=== PATIENT | female | born 1995 | race Caucasian/White ===

== ENCOUNTER 2019-08-28 20:32 | Inpatient (IN) | payer OTHER ==
[~2019-08-28] VITALS: Ht 167.6 cm; Wt 59.7 kg
[2019-08-28] MEDS ORDERED: MELA2.5C2 PO (20:41)
[2019-08-28] MEDS ORDERED: BIOT1000 PO (20:41)
[2019-08-28 21:27] LABS: BASO # 0.1 10^3/uL (0.0-0.2); BASO % 0.7 % (0.0-1.0); EOS % 0.4 % (0.0-3.0); HEMATOCRIT 41.2 % (36.0-47.0); LYMPH # 1.9 10^3/uL (1.5-5.0); LYMPH % 28.1 % (24.0-44.0); MEAN CORPUSCULAR HEMOGLOBIN 31.7 pg (27.0-33.0); MEAN CORPUSCULAR HGB CONC 31.6 g/dl (32.0-36.5); MEAN CORPUSCULAR VOLUME 100.5 fl (80.0-96.0); MONO # 0.3 10^3/uL (0.0-0.8); MONO % 4.9 % (0.0-5.0); NEUTROPHILS # 4.5 10^3/uL (1.5-8.5); NEUTROPHILS % 65.8 % (36.0-66.0); PLATELET COUNT, AUTOMATED 227 10^3/uL (150-450); WHITE BLOOD COUNT 6.9 10^3/uL (4.0-10.0)
[2019-08-28 21:46] LABS: HCG, SERUM QUALITATIVE NEGATIVE (NEGATIVE)
[2019-08-28 21:48] LABS: AMPHETAMINES LEVEL URINE NEGATIVE (NEGATIVE); BARBITURATES URINE NEGATIVE (NEGATIVE); BENZODIAZEPINES URINE NEGATIVE (NEGATIVE); CANNABINOIDS URINE NEGATIVE (NEGATIVE); COCAINE METABOLITE URINE NEGATIVE (NEGATIVE); METHADONE URINE NEGATIVE (NEGATIVE); OPIATES URINE NEGATIVE (NEGATIVE); PHENCYCLIDINE URINE NEGATIVE (NEGATIVE)
[2019-08-28 22:00] LABS: ACETAMINOPHEN LEVEL < 2.0 UG/ML (10.0-30.0); ALBUMIN 4.7 GM/DL (3.2-5.2); ALT/SGPT 19 U/L (12-78); BILIRUBIN,DIRECT < 0.1 MG/DL (0.0-0.2); BILIRUBIN,TOTAL 0.3 MG/DL (0.2-1.0); BLOOD UREA NITROGEN 8 MG/DL (7-18); CALCIUM LEVEL 8.5 MG/DL (8.5-10.1); CARBON DIOXIDE LEVEL 26 MEQ/L (21-32); CHLORIDE LEVEL 112 MEQ/L (98-107); CPK CREATINE PHOSPHOKINASE 379 U/L (26-192); CREATININE FOR GFR 0.91 MG/DL (0.55-1.30); ETHYL ALCOHOL (ETHANOL) 0.329 % (0.000-0.010); GLOMERULAR FILTRATION RATE > 60.0 (>60); GLUCOSE, FASTING 79 MG/DL (70-100); POTASSIUM SERUM 3.9 MEQ/L (3.5-5.1); SALICYLATE LEVEL < 1.7 MG/DL (5.0-30.0); SODIUM LEVEL 146 MEQ/L (136-145); THYROID STIMULATING HORMONE 0.647 uIU/ML (0.358-3.740); TOTAL PROTEIN 8.2 GM/DL (6.4-8.2)
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
[2019-08-28] MEDS ORDERED: IBUPROFEN 600 MG TAB PO ONE (23:45)
--- NOTE | 2019-08-29 06:34 | ECGEPIP ---
[facility] - ED Test Date: 2019-08-28 Pat Name: WANDA KOENIG Department: Room: - Gender: Female [employer] Department Chair: ANGELES : 1995 Requested By: FRANCOISE ROMEO Order Number: [id number] Reading MD: Andres Henderson Measurements Intervals [place] Rate: 75 P: 74 AK: 192 QRS: 76 QRSD: 82 T: 54 QT: 388 QTc: 435 Interpretive Statements SINUS RHYTHM W FIRST DEGREE AV BLOCK DELAYED R WAVE PROGRESSION NONSPECIFIC ST T WAVE CHANGES NO PRIOR ECG FOR COMPARISON Electronically Signed on 08-29-2019 6:33:39 EST by Andres Henderson
[2019-08-29] MEDS ORDERED: MELA5TAB9 PO (12:55)
[2019-08-30] MEDS ORDERED: OLANZapine ORAL DISINTEGRATING TAB 5MG PO PRN (11:45)
[2019-08-30] MEDS ORDERED: traZODone 50 MG TAB PO PRN (11:45)
[2019-08-30] MEDS ORDERED: LORazepam 2 MG TAB PO PRN (11:45)
[2019-08-30] MEDS ORDERED: IBUPROFEN 400 MG TAB PO PRN (11:45)
[2019-08-30] MEDS ORDERED: ACETAMINOPHEN TAB 650MG DOSE (2X325MG) PO PRN (11:45)
[2019-08-30] MEDS: FOLIC ACID 1 MG TAB PO SCH (15:35)
[2019-08-30] MEDS: MULTIVITAMINS/MINERALS THERAP 1 TAB PO SCH (15:35)
[2019-08-30] MEDS: THIAMINE 100 MG TAB PO SCH ×2 (15:35→20:19)
[2019-08-30 15:38] VITALS: BP 113/75
[2019-08-30] MEDS ORDERED: NICOTINE POLACRILEX 2 MG GUM PO ONE (21:00)
[2019-08-30] MEDS: BACITRACIN OINT 30GM TOP SCH (21:44)
[2019-08-31 06:18] VITALS: BP 99/62
[2019-08-31] MEDS: NICOTINE 21MG/24HR 1 EA TRANSDERMAL TD SCH (09:06)
[2019-08-31] MEDS: MULTIVITAMINS/MINERALS THERAP 1 TAB PO SCH (09:06)
[2019-08-31] MEDS: FOLIC ACID 1 MG TAB PO SCH (09:06)
[2019-08-31] MEDS: BACITRACIN OINT 30GM TOP SCH ×3 (09:06→20:17)
[2019-08-31] MEDS: THIAMINE 100 MG TAB PO SCH ×2 (09:06→20:17)
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
[2019-08-31] MEDS ORDERED: SERTRALINE HCL 25 MG TABLET PO ONE (12:00)
[2019-08-31 17:47] VITALS: BP 101/64
--- NOTE | 2019-09-01 00:17 | MHCR ---
DATE OF CONSULTATION: 08/31/2019 TIME: 5:00 p.m. REASON: Medical evaluation of inpatient psychiatric admission. 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 She is originally from [place]. She has been hospitalized secondary to suicidal ideation. I was asked to see her for medical evaluation. The patient on admission was acutely intoxicated. At the present moment, the patient is alert and oriented times three. She denies having any acute medical issues. HOME MEDICATIONS: None. PAST MEDICAL HISTORY: None. PAST SURGICAL HISTORY: Positive for tonsillectomy. 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 She does not use any tobacco. She does use and drink alcohol. FAMILY HISTORY: Notable for her father who has neck cancer, mom with thyroid issues. REVIEW OF SYSTEMS: 12-systems reviewed; the patient is otherwise negative except what is noted in the history of the present illness. EXAMINATION: On examination, the patient's temperature is 98.8, pulse 68 and regular, respiratory rate 16, blood pressure 101/64, oxygen saturation 95% on room air. GENERAL: The patient is alert and oriented times three, appears in no acute distress. SKIN: Intact and warm to touch. HEAD: Atraumatic, normocephalic. Pupils are equal, round and reactive to light and accommodation. Extraocular movements are full in all directions. No scleral icterus or conjunctival pallor. Oropharynx is clear without erythema or thrush. NECK: Supple. LUNGS: Lung sounds present bilaterally without rales or rhonchi. HEART: S1, S2. No murmurs, rubs, or gallops. ABDOMEN: Soft, nontender, nondistended. Positive bowel sounds. EXTREMITIES: Without any cyanosis, clubbing or edema. LABS ARE FOLLOWS: White count 6.9, hemoglobin 13, hematocrit 41.2, platelet count is 227. Sodium 146, potassium 3.9, chloride 112, carbon dioxide 26, anion gap is 8, BUN is 8, creatinine is 0.9, calcium 8.5, TSH is 0.647. Urine hCG was negative. Urine drug screen was negative. Alcohol level was 0.329. Acetaminophen level was less than 2, salicylates less than 1.7, glucose is 160. IMPRESSION: 1. Acute alcohol intoxication. 2. Suicidal ideation with depression. 3. Hypoglycemia secondary to poor oral intake. RECOMMENDATIONS: From my standpoint, the patient is medically stable. May proceed with ongoing psychiatric illness treatment. associated medical issues other than chronic alcoholism, which the patient states that she will followup as an outpatient for further treatment. Thank you for allowing us to participate in the care of your patient. At the present time, will sign off; the patient is medically stable.
[2019-09-01 06:16] VITALS: BP 121/66
[2019-09-01] MEDS: MULTIVITAMINS/MINERALS THERAP 1 TAB PO SCH (08:37)
[2019-09-01] MEDS: FOLIC ACID 1 MG TAB PO SCH (08:37)
[2019-09-01] MEDS: THIAMINE 100 MG TAB PO SCH (08:37)
[2019-09-01] MEDS: BACITRACIN OINT 30GM TOP SCH (08:37)
[2019-09-01] MEDS ORDERED: SERTRALINE HCL 25 MG TABLET PO SCH (09:00)
[2019-09-01] MEDS: NICOTINE 21MG/24HR 1 EA TRANSDERMAL TD SCH (09:00)
[2019-09-01] MEDS ORDERED: NICO21PAT TD (10:55)
[2019-09-01] MEDS ORDERED: SERT25TA21 PO (10:55)
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
== END 2019-09-01 12:00 | disposition home or self-care (01) | DRG 880 ==
LOC: M ED 20:32 → M ED INP 08-30 11:45 → M PSY 08-30 14:05
PROVIDERS: ADMIT Psychiatry & Neurology Addiction Medicine; ATTEND Psychiatry & Neurology Addiction Medicine
DX: F43.0 Acute stress reaction (principal); R45.851 Suicidal ideations; F10.229 Alcohol dependence with intoxication, unspecified; Z91.410 Personal history of adult physical and sexual abuse; Z81.8 Family history of other mental and behavioral disorders; Z79.899 Other long term (current) drug therapy; F32.9 Major depressive disorder, single episode, unspecified; E16.2 Hypoglycemia, unspecified

== ENCOUNTER 2019-12-17 17:07 | Inpatient (IN) | payer OTHER ==
[~2019-12-17] VITALS: Ht 170.2 cm; Wt 61.6 kg
[~2019-12-17 17:07] MED LIST: BIOT1000 PO; MELA2.5C2 PO; MELA5TAB9 PO; NICO21PAT TD; SERT25TA21 PO
[2019-12-17 18:02] LABS: HEMATOCRIT 44.1 % (36.0-47.0); HEMOGLOBIN 14.9 g/dl (12.0-15.5); MEAN CORPUSCULAR HGB CONC 33.8 g/dl (32.0-36.5); MEAN CORPUSCULAR VOLUME 94.8 fl (80.0-96.0); PLATELET COUNT, AUTOMATED 293 10^3/uL (150-450); RED BLOOD COUNT 4.65 10^6/uL (4.00-5.40); WHITE BLOOD COUNT 5.4 10^3/uL (4.0-10.0)
[2019-12-17 18:20] LABS: AMPHETAMINES LEVEL URINE NEGATIVE (NEGATIVE); BARBITURATES URINE NEGATIVE (NEGATIVE); BENZODIAZEPINES URINE NEGATIVE (NEGATIVE); CANNABINOIDS URINE NEGATIVE (NEGATIVE); COCAINE METABOLITE URINE NEGATIVE (NEGATIVE); METHADONE URINE NEGATIVE (NEGATIVE); OPIATES URINE NEGATIVE (NEGATIVE); PHENCYCLIDINE URINE NEGATIVE (NEGATIVE)
[2019-12-17 18:42] LABS: ACETAMINOPHEN LEVEL < 2.0 UG/ML (10.0-30.0); ALT/SGPT 19 U/L (12-78); BILIRUBIN,DIRECT 0.1 MG/DL (0.0-0.2); BILIRUBIN,TOTAL 0.3 MG/DL (0.2-1.0); BLOOD UREA NITROGEN 3 MG/DL (7-18); CALCIUM LEVEL 8.9 MG/DL (8.5-10.1); CARBON DIOXIDE LEVEL 28 MEQ/L (21-32); CHLORIDE LEVEL 108 MEQ/L (98-107); CREATININE FOR GFR 0.88 MG/DL (0.55-1.30); ETHYL ALCOHOL (ETHANOL) 0.246 % (0.000-0.010); GLOMERULAR FILTRATION RATE > 60.0 (>60); GLUCOSE, FASTING 107 MG/DL (70-100); POTASSIUM SERUM 4.3 MEQ/L (3.5-5.1); SALICYLATE LEVEL < 1.7 MG/DL (5.0-30.0); SODIUM LEVEL 143 MEQ/L (136-145); TOTAL PROTEIN 8.8 GM/DL (6.4-8.2)
[2019-12-17] MEDS ORDERED: LORazepam 2 MG TAB PO PRN (19:00)
[2019-12-18] MEDS ORDERED: ACETAMINOPHEN TAB 650MG DOSE (2X325MG) PO PRN (02:30)
[2019-12-18] MEDS ORDERED: MAALOX 30 ML SUSP *UDC PO PRN (02:30)
[2019-12-18] MEDS ORDERED: MOM 30ML SUSPENSION UDC PO PRN (02:30)
[2019-12-18] MEDS ORDERED: MELA1TAB9 PO (03:20)
[2019-12-18] MEDS ORDERED: SERT50TA29 PO (03:20)
[2019-12-18 05:22] VITALS: BP 127/76
[2019-12-18 05:25] VITALS: BP 127/76
[2019-12-18] MEDS ORDERED: SERTRALINE HCL 25 MG TABLET PO SCH (09:00)
--- NOTE | 2019-12-18 11:52 | HPEPDOC ---
General Date of Admission December 18, 2019 at 02:28 Date of Service: December 18, 2019 Chief Complaint The patient is a 24-year-old female admitted with a reason for visit of Unspecified Depressive Disorder. Source: Patient Exam Limitations: No limitations Timing/Duration: Other (not applicable) Severity: Other (. 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 Patient was also found to have alcohol level of 0.246 in ED and admitted to inpatient mental health unit for further care. Patient has no past medical history, offers no medical complaints at the present time. Home Medications Scheduled Melatonin (Melatonin) 5 Mg Tablet, 5 MG PO QHS, (Reported) Sertraline HCl (Sertraline HCl) 50 Mg Tablet, 50 MG PO DAILY, (Reported) Allergies Coded Allergies: No Known Drug Allergies (Verified Allergy, Unknown, 08/28/19) Past Medical History Medical History None Surgical History Tonsillectomy Family History Father is diagnosed with throat cancer at age of early 40s Social History * Smoker: other (. Patient vaps about a pack a day) Alcohol: rarely Drugs: denies A-FIB/CHADSVASC A-FIB History Current/History of A-Fib/PAF?: No Review of Systems Constitutional: Denies: Chills, Fever, Malaise, Night Sweats, Weakness, Fatigue, Weight Loss, Lethargy, Other Eyes: Denies: Pain, Vision change, Conjunctivae inflammation, Eyelid inflammation, Redness, Other ENT: Denies: Head Aches, Ear Pain, Dysphagia, Sinus Congestion, Post Nasal Drip, Sore Throat, Epistaxis, Other Symptoms Skin: Denies: Rash, Lesions, Jaundice, Bruising, Itching, Dry, Breakdown, Nail Changes, Other Pulmonary: Denies: Dyspnea, Cough, Pleuritic Chest Pain, Other Symptoms Cardiovascular: Denies: Chest Pain, Palpitations, Orthopnea, Paroxysmal Noc. Dyspnea, Edema, Lt Headedness, Other Symptoms Gastrointestinal: Denies: Nausea, Vomiting, Abdominal Pain, Diarrhea, Con stipation, Melena, Hematochezia, Other Symptoms Genitourinary: Denies: Dysuria, Frequency, Incontinence, Hematuria, Retention, Other Symptoms Musculoskeletal: Denies: Neck Pain, Back Pain, Shoulder Pain, Arm Pain, Hand Pain, Leg Pain, Foot Pain, Joint Pain, Muscle Pain, Spasms, Other Symptoms Neurological: Denies: Weakness, Numbness, Incoordination, Change in speech, Confusion, Seizures, Other Symptoms Psych: Denies: Mood Normal, Anxiety, Depression, Memory Issues, Thoughts of Self Harm, Anger, Thoughts of Harming Other, Other Psych Physical Examination General Exam: Positive: Alert, Cooperative Eye Exam: Positive: PERRLA, Conjunctiva & lids normal ENT Exam: Positive: Atraumatic, Mucous membr. moist/pink Neck Exam: Positive: Supple Chest Exam: Positive: Clear to auscultation, Normal air movement Heart Exam: Positive: Rate Normal, Normal S1, Normal S2 Abdomen Exam: Positive: Normal bowel sounds, Soft Extremity Exam: Positive: Normal pulses Skin Exam: Positive: Nl turgor and temperature Neuro Exam: Positive: Strength at 5/5 X4 ext, Sensation Intact, Cranial Nerves 3-12 NL Psych Exam: Positive: Mood NL, Oriented x 3 Vital Signs Vital Signs Date Time Temp Pulse Resp B/P (MAP) Pulse Ox O2 Delivery O2 Flow Rate FiO2 12/18/19 05:25 86 127/76 12/18/19 05:22 99.3 16 99 Room Air Laboratory Data Labs 24H Laboratory Tests 2 12/17/19 17:39: Nucleated Red Blood Cells % (auto) 0.0, Anion Gap 7L, Glomerular Filtration Rate > 60.0, Calcium Level 8.9, Total Bilirubin 0.3, Direct Bilirubin 0.1, Aspartate Amino Transf (AST/SGOT) 14, Alanine Aminotransferase (ALT/SGPT) 19, Alkaline Phosphatase 117, Total Protein 8.8H, Albumin 5.0, Albumin/Globulin Ratio 1.3, Thyroid Stimulating Hormone (TSH) 1.030, Salicylates Level < 1.7L, Urine Opiates Screen NEGATIVE, Urine Methadone Screen NEGATIVE, Acetaminophen Level < 2.0L, Urine Barbiturates Screen NEGATIVE, Urine Phencyclidine Screen NEGATIVE, Urine Amphetamines Screen NEGATIVE, Urine Benzodiazepines Screen NEGATIVE, Urine Cocaine Metabolite Screen NEGATIVE, Urine Cannabinoids Screen NEGATIVE, Ethyl Alcohol Level 0.246H 12/17/19 22:26: Ethyl Alcohol Level 0.147H CBC/BMP Laboratory Tests 12/17/19 17:39 Problems (1) Suicidal ideation Status: Acute Problem Text: Patient admitted to inpatient mental health unit for further assessment and care Individual and group counseling, as per psychiatry Pharmacological intervention as per psychiatry Patient has no past medical history and doesn't offer any medical complaints at the present time Please call as needed (2) Depression Status: Acute Problem Text: Medications as per psychiatry (3) Alcohol intoxication Status: Acute Problem Text: Patient has been started on benzodiazepine for his prevention of withdrawal symptoms Also is on trazodone at bedtime for sleep Oral hydration. Recommended Plan / VTE VTE Prophylaxis Ordered?: Yes LUCIANO FELTON MD December 18, 2019 11:52
[2019-12-18] MEDS: NICOTINE 21MG/24HR 1 EA TRANSDERMAL TD SCH (12:00)
[2019-12-18] MEDS ORDERED: SERTRALINE HCL 25 MG TABLET PO ONE (14:30)
[2019-12-18 16:15] VITALS: BP 130/80
[2019-12-18 16:36] VITALS: BP 124/80
[2019-12-18] MEDS: traZODone 50 MG TAB PO PRN (23:22)
[2019-12-19 06:30] VITALS: BP 148/74
[2019-12-19] MEDS: SERTRALINE HCL 50 MG TAB PO SCH (08:08)
[2019-12-19] MEDS: NICOTINE 21MG/24HR 1 EA TRANSDERMAL TD SCH (08:09)
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
[2019-12-19 16:08] VITALS: BP 111/67
[2019-12-19] MEDS: traZODone 50 MG TAB PO PRN (21:25)
[2019-12-20 06:36] VITALS: BP 110/73
[2019-12-20] MEDS: SERTRALINE HCL 50 MG TAB PO SCH (09:07)
[2019-12-20] MEDS: NICOTINE 21MG/24HR 1 EA TRANSDERMAL TD SCH (09:08)
--- NOTE | 2019-12-20 10:04 | MHDSPDOC ---
[facility] Discharge Summary Discharge Summary DATE OF ADMISSION: December 18, 2019 at 02:28 DATE OF DISCHARGE: 12/20/2019 Discharge Dea Myers MRN: [id number] Date of : N/A Date of Service: 12/20/2019 Diagnoses Unspecified depressive disorder. Borderline personality disorder. Alcohol use disorder, severe. 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 Consultants Involved Hospitalist/PCP screening Treatment and Progress On The Unit The patient was admitted to the inpatient mental health unit where she was subsequently assessed and placed back on her home medications without any alterations. She was placed on CIWA to be monitored for any potential withdrawal problems. She did well without any significant problems. She is cooperative with treatment and did not have any behavioral problems. She denied suicidality throughout the entirety of her admission with no wavering. She was observed over the weekend where she demonstrated no concerning behavior and was discharged at her request. Discharge Assessment 24-year-old woman with significant alcohol problems, presents after becoming intoxicated and making statements. She was observed over the weekend without any further incident. The patient at the time of discharge did not meet criteria for involuntary admission/extension due to having a normal mental status exam, fair insight into the situation, They are engaged in the discharge process, as well as being friendly and amenable in behavioral control and havent been engaging in any observed concerning behavior or ideation recently. They decline voluntary extension/admission at this time and must be discharged in good ronald, as Im unable to make a case for holding the patient against their will. They may have historical risk factors of admissions and other interactions with psychiatry however, those are not modifiable from a clinical perspective. The patient will need to be discharged in good ronald. Mental Status Examination General: Well dressed with good hygiene Speech: Spontaneous and fluid Thought processes: Linear and logical MSK: Smooth and coordinated gait, no signs of tremors or involuntary orofacial movements Thought content: Future orientated Abstract reasoning, and computation: Intact Description of associations: Intact Description of abnormal or psychotic thoughts: Denies any suicidal or homicidal ideation. Denies any auditory or visual hallucinations. Does not appear to be responding to internal stimuli. Does not appear to be endorsing any bizarre or paranoid ideation. Judgment: fair Insight: fair Orientation: Alert and orientated 3 Cognition: Grossly normal Recent and remote memory: Intact Attention span and concentration: Intact Fund of knowledge: Adequate Mood: "okay" Affect: Euthymic with a full range Follow Up The social work team worked during the predischarge meeting in order to evaluate for further issues of lethality address them fully before discharge. They worked on safety planning with the patient's family members in order to ensure that the patient will have a safe and effective discharge. Time Spent The amount of time spent in the coordination of care for this patient was approximately 45 minutes. Friday Vital Signs/I&Os Vital Signs Date Time Temp Pulse Resp B/P (MAP) Pulse Ox O2 Delivery O2 Flow Rate FiO2 12/20/19 06:36 98.3 70 12 110/73 (85) Room Air 12/18/19 05:22 99 Medications Scheduled Melatonin (Melatonin) 5 Mg Tablet, 5 MG PO QHS, (Reported) Nicotine (Nicotine Patch) 21 Mg Patch.td24, 1 PATCH TD DAILY for tobacco for 30 Days, #30 Sertraline HCl (Sertraline HCl) 50 Mg Tablet, 50 MG PO DAILY for mood for 7 Days, #7 Allergies Coded Allergies: No Known Drug Allergies (Verified Allergy, Unknown, 08/28/19) DOT CORDERO DO December 20, 2019 10:04
[2019-12-20] MEDS ORDERED: NICO21PAT TD (10:45)
[2019-12-20] MEDS ORDERED: SERT50TA29 PO (10:45)
--- NOTE | 2019-12-20 23:32 | MHIPN ---
DATE: 12/19/2019 The patient today states that she is doing pretty good. She continues to insist that she never had any intentions of killing herself. She just cut due to the fact that it helps her deal with her stress. MENTAL STATUS EXAM: She is alert, oriented times three. Eye contact is fairly good, verbally spontaneous. There is no formal thought disorder noted. She says that her mood is good. Affect is full range and appropriate to her mood. She is not psychotic, suicidal or homicidal. Concentration is fair. Memory intact. Insight and judgment is fair. DIAGNOSES: Adjustment disorder with disturbance of mood and conduct. Borderline personality disorder. Alcohol use disorder, severe. Rule out unspecified anxiety disorder. TREATMENT PLAN: At this point, the patient will continue to be monitored for continued resolution of her suicidal ideations and continued elevation and stabilization of her mood. She has been continued on her Zoloft 50 mg, which she says helps her with her anxiety.
== END 2019-12-20 14:25 | disposition home or self-care (01) | DRG 881 ==
LOC: M ED 17:07 → M PSY 12-18 02:28 → M ED INP 12-18 02:28 → M PSY 12-18 04:20
PROVIDERS: ADMIT Psychiatry & Neurology Psychiatry; ATTEND Psychiatry & Neurology Addiction Medicine
DX: F32.9 Major depressive disorder, single episode, unspecified (principal); R45.851 Suicidal ideations; F60.3 Borderline personality disorder; F10.10 Alcohol abuse, uncomplicated; Z79.899 Other long term (current) drug therapy; F17.200 Nicotine dependence, unspecified, uncomplicated